=== PATIENT | female | born 1955 | race Caucasian/White ===

== ENCOUNTER → 2017-05-27 | Outpatient (CLI) | payer MEDICARE | LOC: M.MRI 05-26 13:30 | DX: G93.0 Cerebral cysts (principal); I67.82 Cerebral ischemia; Z87.820 Personal history of traumatic brain injury ==

== ENCOUNTER → 2017-12-04 | Outpatient (CLI) | payer MEDICARE ==
[2017-12-04 12:18] LABS: PROTIME 10.1 Seconds (9.20-11.50)
[2017-12-04 12:52] LABS: ALBUMIN 4.2 g/dL (3.4-5.0); DIRECT BILIRUBIN 0.2 mg/dL (<0.1-0.3); TOTAL BILIRUBIN 0.7 mg/dL (<0.1-1.0); TOTAL PROTEIN 8.3 g/dL (6.4-8.2)
== END ==
LOC: M.LAB 11:46
DX: R74.8 Abnormal levels of other serum enzymes (principal); R94.5 Abnormal results of liver function studies; E03.9 Hypothyroidism, unspecified; I10 Essential (primary) hypertension

== ENCOUNTER 2019-11-18 19:03 | Emergency (ER) | payer MEDICARE ==
[~2019-11-18] VITALS: Ht 170.2 cm; Wt 84.8 kg
[2019-11-18] MEDS ORDERED: LEVO-T100 MCG PO (19:17)
[2019-11-18] MEDS ORDERED: VITAMIN B12-FO1 EAC1 PO (19:18)
[2019-11-18] MEDS ORDERED: IRON160 M1 PO (19:18)
[2019-11-18 19:25] LABS: ABSOLUTE BASOPHILS 0.1 thou/uL (0.0-0.2); ABSOLUTE EOSINOPHILS 0.2 thou/uL (0.0-0.7); ABSOLUTE LYMPHOCYTES 2.8 thou/uL (0.8-5.3); ABSOLUTE MONOCYTES 0.5 thou/uL (0.0-1.2); ABSOLUTE NEUTROPHILS 5.8 thou/uL (1.6-8.1); BASOPHILS 1.2 %; EOSINOPHILS 2.2 %; HEMATOCRIT 40.3 % (37.0-47.0); HEMOGLOBIN 13.5 gm/dL (12.0-15.0); LYMPHOCYTES 29.5 %; MCH 26.2 pg (26.0-34.0); MCHC 33.5 g/dL (28.0-37.0); MCV 78.2 fL (80.0-100.0); MONOCYTES 5.8 %; MPV 8.8 fl. (7.2-11.1); NUCLEATED RBCS 0 /100WBC; PLATELET COUNT* 278 thou/uL (150-400); POLYS 61.3 %; RBC 5.15 mil/uL (4.20-5.00); RDW-CV 15.5 % (10.5-14.5); WBC 9.5 thou/uL (4.0-11.0)
[2019-11-18 19:39] LABS: APTT 26.2 Seconds (25.0-31.3); PROTIME 10.5 Seconds (9.20-11.50)
[2019-11-18 19:43] LABS: CALCIUM 8.6 mg/dL (8.5-10.1); POTASSIUM 3.3 mmol/L (3.5-5.1)
[2019-11-18 19:48] LABS: ALBUMIN 3.9 g/dL (3.4-5.0); TOTAL BILIRUBIN 0.7 mg/dL (<0.1-1.0)
[2019-11-18 21:58] VITALS: BP 132/77
--- NOTE | 2019-11-19 13:08 | EKG ---
[place] [address] ELECTROCARDIOGRAM REPORT Name: CLAROSMASSIEL GARCIAYL Benny Room: [facility]#: [id number] Admission: 11/18/19 Attend Phys: Discharge: 11/18/19 Date of : 55 Date of Service: 11/18/19 190 Report #: [id number] THIS REPORT FOR: //name// [facility] ED Test Date: 2019-11-18 Test Time: 19:08:34 Pat Name: JOHN CLAROS Department: Room: Gender: Travel Pta: : 1955 Requested By: Reyna Saenz Order Number: [id number] MD: sAaf Ritter Measurements Intervals [place] Rate: 76 P: 35 [place]: 167 QRS: -30 QRSD: 95 T: 22 QT: 421 QTc: 474 Interpretive Statements Sinus rhythm Left axis deviation Abnormal R-wave progression, late transition Borderline T abnormalities, anterior leads No previous ECG available for comparison Electronically Signed On 11-19-2019 13:07:49 CDT by Asaf Ritter [email or web address] <ELECTRONICALLY SIGNED> By: Asaf Ritter MD, [facility] 11/19/19 1307 [id number] 1908 Asaf Ritter MD, [facility] /EPI
== END 2019-11-18 21:58 | disposition home or self-care (01) ==
LOC: M.ERS 19:03
PROVIDERS: Personal Emergency Response Attendant
DX: R07.89 Other chest pain (principal); I10 Essential (primary) hypertension; E03.9 Hypothyroidism, unspecified; Z91.048 Other nonmedicinal substance allergy status; Z88.1 Allergy status to other antibiotic agents; Z88.4 Allergy status to anesthetic agent; Z88.5 Allergy status to narcotic agent

== ENCOUNTER → 2019-11-18 | Outpatient (CLI) | payer MEDICARE ==
[~2019-11-18] MED LIST: IRON160 M1 PO; LEVO-T100 MCG PO; VITAMIN B12-FO1 EAC1 PO
== END ==
LOC: M.LAB 15:30 → M.MRI 16:30
DX: M51.24 Other intervertebral disc displacement, thoracic region (principal); M48.02 Spinal stenosis, cervical region; M47.812 Spondylosis without myelopathy or radiculopathy, cervical region; M53.82 Other specified dorsopathies, cervical region; M50.21 Other cervical disc displacement, high cervical region; M43.20 Fusion of spine, site unspecified; M25.78 Osteophyte, vertebrae; R90.82 White matter disease, unspecified